=== PATIENT | male | born 1945 | race Caucasian/White ===

== ENCOUNTER 2016-10-19 17:34 | Emergency (ER) | payer MEDICARE | END 2016-10-19 18:10 | disposition E | LOC: ER1 17:34 → EDBD 17:34 → ER1 17:34 | DX: I46.9 Cardiac arrest, cause unspecified (principal); F17.210 Nicotine dependence, cigarettes, uncomplicated; I10 Essential (primary) hypertension | CPT/HCPCS: 99285; J0171 ==